=== PATIENT | male | born 1970 | race Caucasian/White ===

== ENCOUNTER 2020-05-02 22:57 | Emergency (ER) | payer OTHER ==
[~2020-05-02] VITALS: Ht 167.6 cm; Wt 69.0 kg
[2020-05-02 22:59] VITALS: BP 147/99
[2020-05-03] MEDS ORDERED: SODIUM CHLORIDE 0.9% 1,000 ML IV ONE (00:11)
== END 2020-05-03 00:16 | disposition left against medical advice (07) ==
LOC: ER 22:57
DX: R00.2 Palpitations (principal); Z86.19 Personal history of other infectious and parasitic diseases; I10 Essential (primary) hypertension
CPT/HCPCS: 93005; 99283; J7030